=== PATIENT | female | born 1995 | race American Indian/Alaskan Native ===

== ENCOUNTER 2016-10-03 14:51 | Emergency (ER) | payer MEDICAID ==
[2016-10-03 14:57] VITALS: BP 132/77; PULSE 73; RESP 16; TEMP 98.2; O2SAT 100
[2016-10-03] MEDS ORDERED: Naproxen 500 MG TAB PO ONE (15:33)
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
--- NOTE | 2016-10-03 16:45 | RAD ---
PROCEDURE: Radiographs of the Lumbar Spine. HISTORY: pain COMPARISON: None available. FINDINGS: BONES: Alignment appears satisfactory. No listhesis. No acute displaced fracture identified. DISC SPACES: Unremarkable. OTHER FINDINGS: None. IMPRESSION: No acute displaced fracture or subluxation identified.
== END 2016-10-03 16:45 | disposition home or self-care (01) ==
LOC: H.ER 14:51
DX: M54.5 Low back pain (principal); S09.90XA Unspecified injury of head, initial encounter; V43.62XA Car passenger injured in collision with other type car in traffic accident, initial encounter; Y92.410 Unspecified street and highway as the place of occurrence of the external cause; M41.9 Scoliosis, unspecified